=== PATIENT | female | born 1960 | race Caucasian/White ===

== ENCOUNTER 2019-06-22 11:53 | Emergency (ER) | payer BC ==
[2019-06-22 12:27] VITALS: BP 122/81
--- NOTE | 2019-06-22 12:29 | UC ---
Nausea/Vomiting/Diarrhea HPI - HPI Summary HPI Summary: Patient is a 58yo female presenting with c/o nausea and vomiting x3 days. 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 States she vomited ~2-3 more times that day. Also notes sharp L arm pain that began on thursday. States it does not radiate and is only the upper arm, not into should or forearm. Notes worse with arm abduction and better at rest. States that pain has gradually improved and feels "significantly better" when applying heat. Patient also notes she gave herself an EKG at work yesterday, which she states was normal. Denies abdominal pain and diarrhea. Denies URI symptoms. Denies fever, chills, body aches, and weight loss. Denies urinary symptoms, "other than dark urine because I am not drinking much." Notes decreased appetite and fluid intake "because just the though of food or drink makes me nauseous." States nausea subsides after vomiting but comes back shortly after. Patient states she has not eaten since Thursday or kept down fluids since thursday. States still urinating but less. Does note daily GERD and depression medication which she has not taken since Thursday. States depression medication "isn't for depression, it's to help with menopause symptoms and hot flashes." H/o lap band surgery and . - History of Current Complaint Stated Complaint: NAUSEA,LOZADA,BODY ACHES,LOW ENERGY X 3 DAYS Hx Obtained From: Patient Hx Last Menstrual Period: n/a Onset/Duration: Sudden Onset, Lasting Days Pain Intensity: 5 Pain Scale Used: 0-10 Numeric - Allergies/Home Medications Allergies/Adverse Reactions: Allergies Allergy/AdvReac Type Severity Reaction Status Date / Time Sulfa (Sulfonamide Allergy Hives Verified 06/22/19 12:21 Antibiotics) PMH/Surg Hx/FS Hx/Imm Hx GI/ History: Gastroesophageal Reflux - Surgical History Surgical History: Yes Surgery Procedure, Year, and Place: lap band 2007, 1986 - Family History Known Family History: Positive: Hypertension - Social History Occupation: Employed Full-time Alcohol Use: None Substance Use Type: None Smoking Status (MU): Former Smoker When Did the Patient Quit Smoking/Using Tobacco: 9 YRS - Immunization History Most Recent Tetanus Shot: 10/2013 Review of Systems All Other Systems Reviewed And Are Negative: Yes Constitutional: Positive: Fatigue. Negative: Fever, Chills Skin: Positive: Negative ENT: Positive: Negative Respiratory: Positive: Negative. Negative: Shortness Of Breath, Cough Cardiovascular: Positive: Negative. Negative: Palpitations, Chest Pain Gastrointestinal: Positive: Vomiting, Nausea. Negative: Abdominal Pain, Diarrhea Genitourinary: Positive: Negative. Negative: Dysuria, Hematuria, Frequency, Urgency Musculoskeletal: Positive: Negative. Negative: Myalgia Neurological: Positive: Headache Physical Exam Triage Information Reviewed: Yes Appearance: Well-Appearing, No Pain Distress, Well-Nourished Vital Signs: Initial Vital Signs Temp 98.5 F 06/22/19 12:22 Pulse 96 06/22/19 12:22 Resp 16 06/22/19 12:22 BP 122/81 06/22/19 12:22 Pulse Ox 99 06/22/19 12:22 Lab Results 06/22/19 Range/Units 13:57 POC Urine Color Yellow POC Urine Clarity Clear POC Urine pH 5.5 (5-9) POC Ur Specif [place] 1.025 (1.010-1.030) POC Urine Protein Trace (Negative) POC Ur Glucose (UA) Negative (Negative) POC Urine Ketones Trace (Negative) POC Urine Blood 1+ A (Negative) POC Urine Nitrite Negative (Negative) POC Urine Bilirubin 1+ A (Negative) POC Urine Urobilinogen 0.2 (Negative) POC U Leukocyte Esteras 2+ A (Negative) Vital Signs Reviewed: Yes Eyes: Positive: Conjunctiva Clear ENT: Positive: Hearing grossly normal, Pharynx normal Neck exam: Normal Neck: Positive: Supple, Nontender, No Lymphadenopathy Respiratory Exam: Normal Respiratory: Positive: Lungs clear, Normal breath sounds, No respiratory distress, No accessory muscle use. Negative: Crackles, Rhonchi, Stridor, Wheezing Cardiovascular Exam: Normal Cardiovascular: Positive: RRR Abdominal Exam: Normal Abdomen Description: Positive: Nontender, No Organomegaly, Soft, Other: - negative Briones's sign. port from lap band surgery noted in epigastric region that patient states "has been there for 10 years". Negative: CVA Tenderness (R) , CVA Tenderness (L), Distended, Guarding, McBurney's Point Tenderness Bowel Sounds: Positive: Present, Hypoactive Musculoskeletal: Positive: Strength Intact, No Edema, ROM Limited @ - L arm abduction d/t pain Neurological: Positive: Alert Psychological: Positive: Age Appropriate Behavior Skin Exam: Normal - no erythema or ecchymosis Naus/Vom/Diarrhea Course/Dx - Course Course Of Treatment: Patient presenting with n/v x3 days with no food or fluid intake. Patient received zofran here and was able to keep down water, zeb francia, and crackers. Patient noted improvement of nausea and stated "now I just want to go home and get some rest." UA positive for 2+ WBCs, 1+blood and bilirubin, trace ketones and protein. Patient without urinary symptoms, fever, abd pain, or flank pain. Patient VS normal and in NAD. I provided patient with zofran for home. She has not taken her celexa in 3 days, so I instructed her to withhold until no longer taking zofran, as to avoid prolonged QTc. Patient without cardiac issues. Instructed to follow up with pcp if symptoms persist. Educated on new or worsening symptoms that warrant going to ED and instructed to go to nearest one if any occur. Patient voiced understanding and agreed with the treatment plan. - Differential Dx/Diagnosis Differential Diagnoses - Female: Urinary Tract Infection, Gastroenteritis (Viral ), Vomiting, Gastritis Provider Diagnosis: Nausea and vomiting in adult patient Condition At Discharge: Stable Discharge ED - Sign-Out/Discharge Documenting (check all that apply): Patient Departure All imaging exams completed and their final reports reviewed: No Studies - Discharge Plan Condition: Stable Disposition: HOME Prescriptions: Ondansetron ODT TAB* [Zofran 4 MG Odt TAB*] 4 mg SL Q6H PRN #8 tab.odt PRN Reason: Nausea/Vomiting Patient Education Materials: Acute Nausea and Vomiting (ED) Referrals: Kevin Ye MD [Primary Care Provider] - If Needed Additional Instructions: As discussed, take the zofran as prescribed for your nausea and vomiting. Do not begin taking your Celexa again until you are no longer taking the Zofran. Get plenty of rest and fluids. Eat a bland diet, such as bread, bananas, and rice while symptoms are present. Go to the emergency room if your symptoms if you develop fever, abdominal pain, excessive vomiting or diarrhea, or are unable to keep fluids down. - Billing Disposition and Condition Condition: STABLE Disposition: Home
[2019-06-22] MEDS ORDERED: Ondansetron ODT TAB* 4 MG SL PRN (12:47)
[2019-06-22] MEDS ORDERED: Ondansetron ODT TAB* 4 MG SL ONE (12:50)
== END 2019-06-22 14:17 | disposition home or self-care (01) ==
LOC: UCCORT 11:53
DX: R11.2 Nausea with vomiting, unspecified (principal); Z88.2 Allergy status to sulfonamides; Z87.891 Personal history of nicotine dependence
CPT/HCPCS: 81003; 87086; 99212; A9270-GY; G0463

== ENCOUNTER 2019-08-30 14:54 | Emergency (ER) | payer BC ==
[2019-08-30 15:02] VITALS: BP 116/88
--- NOTE | 2019-08-31 06:33 | ED ---
Upper Extremity Pain - HPI Summary HPI Summary: Patient is a 58-year-old female who presents emergency department for left thumb injury that occurred this morning. Patient states she slipped outside and landed onto left hand causing them to hyperextend. No other injuries sustained. Symptoms are mild in severity. Moving area makes symptoms worse. Rest makes symptoms better. - History of Current Complaint Chief Complaint: EDExtremityUpper Stated Complaint: LEFT THUMB INJURY PER PT Time Seen by Provider: 08/30/19 15:06 Hx Obtained From: Patient Hx Last Menstrual Period: n/a - Allergies/Home Medications Allergies/Adverse Reactions: Allergies Allergy/AdvReac Type Severity Reaction Status Date / Time Sulfa (Sulfonamide Allergy Hives Verified 08/30/19 15:07 Antibiotics) Home Medications: Home Medications Citalopram TAB* [CeleXA TAB*] 20 mg PO DAILY 08/30/19 [History Confirmed ] Cyanocobalamin INJ * [Vitamin B12 INJ *] 1,000 mcg IM MONTHLY 08/30/19 [History Confirmed 08/30/19] Esomeprazole(NF) [NexIUM(NF)] 40 mg PO DAILY 08/30/19 [History Confirmed ] Rosuvastatin (NF) [Crestor (NF)] 10 mg PO DAILY 08/30/19 [History Confirmed ] Ustekinumab [Stelara] 45 mg SUBCUT Q3M 08/30/19 [History Confirmed 08/30/19] buPROPion SR TAB* [Wellbutrin SR TAB*] 150 mg PO BID 08/30/19 [History Confirmed 08/30/19] PMH/Surg Hx/FS Hx/Imm Hx Previously Healthy: Yes Endocrine/Hematology History: Denies: Hx Diabetes, Hx Thyroid Disease Cardiovascular History: Denies: Hx Hypertension, Hx Pacemaker/ICD Respiratory History: Denies: Hx Asthma, Hx Chronic Obstructive Pulmonary Disease (COPD) GI History: Denies: Hx Ulcer Sensory History: Denies: Hx Hearing Aid Psychiatric History: Denies: Hx Panic Disorder - Surgical History Surgery Procedure, Year, and Place: lap band 2007, 1986 Infectious Disease History: No Infectious Disease History: Denies: Hx Hepatitis, Hx Human Immunodeficiency Virus (HIV), Traveled Outside the [place] in Last 30 Days - Family History Known Family History: Positive: Hypertension, Non-Contributory - Social History Occupation: Employed Full-time Lives: With Family Alcohol Use: None Substance Use Type: Reports: None Smoking Status (MU): Former Smoker Review of Systems - ROS Summary Review of Systems Summary: Citalopram TAB* [CeleXA TAB*] 20 mg PO DAILY 08/30/19 [History Confirmed ] Cyanocobalamin INJ * [Vitamin B12 INJ *] 1,000 mcg IM MONTHLY 08/30/19 [History Confirmed 08/30/19] Esomeprazole(NF) [NexIUM(NF)] 40 mg PO DAILY 08/30/19 [History Confirmed ] Rosuvastatin (NF) [Crestor (NF)] 10 mg PO DAILY 08/30/19 [History Confirmed ] Ustekinumab [Stelara] 45 mg SUBCUT Q3M 08/30/19 [History Confirmed 08/30/19] buPROPion SR TAB* [Wellbutrin SR TAB*] 150 mg PO BID 08/30/19 [History Confirmed 08/30/19] Positive: Other - pain to left thumb. Positive: Bruising Neurological/Mental Status: Negative Negative: Weakness, Paresthesia, Numbness All Other Systems Reviewed And Are Negative: Yes Physical Exam Triage Information Reviewed: Yes Vital Signs On Initial Exam: Initial Vitals Temp Pulse Resp BP Pulse Ox 99.1 F 97 18 116/88 98 08/30/19 14:59 08/30/19 14:59 08/30/19 14:59 08/30/19 14:59 08/30/19 14:59 Vital Signs Reviewed: Yes Appearance: Positive: Well-Appearing - Pt. sitting on chair in NAD. Skin: Positive: Warm, Dry Head/Face: Positive: Normal Head/Face Inspection Eyes: Positive: Normal, EOMI Neck: Positive: Supple Musculoskeletal: Positive: Other - Pain and edema noted to left thumb extending to metacarpal. No breaks in skin. Difficulty with ROM secondary to pain. Difficult to assess tendons and ligaments. No proximal pain. Neurological: Positive: Normal, CN Intact II-III Psychiatric: Positive: Affect/Mood Appropriate Procedures - Sedation Patient Received Moderate/Deep Sedation with Procedure: No Diagnostics - Vital Signs Vital Signs Temp Pulse Resp BP Pulse Ox 08/30/19 14:59 99.1 F 97 18 116/88 98 - Laboratory Lab Statement: Any lab studies that have been ordered have been reviewed, and results considered in the medical decision making process. Course/Dx - Course Course Of Treatment: Patient with left hand injury. X-rays negative for acute findings per radiology. Concern for potential ligamental injury given fall and exam. Patient placed in thumb spica. We'll refer her to orthopedics for further evaluation. Ice and elevate intermittently. Tylenol or Motrin for pain as directed. Patient understands and agrees with plan. - Diagnoses Differential Diagnosis/HQI/PQRI: Positive: Fracture (Closed), Strain, Sprain Provider Diagnoses: Left thumb sprain Discharge ED - Sign-Out/Discharge Documenting (check all that apply): Patient Departure - Discharge Plan Condition: Good Disposition: HOME Patient Education Materials: Skier's Thumb (ED), Finger Sprain (ED) Referrals: Pato Delacruz MD [Medical Doctor] - Kevin Ye MD [Primary Care Provider] - Additional Instructions: Please schedule a follow up appointment with orthopedics for further evaluation of thumb injury Keep splint in place Ice and elevate Tylenol or Motrin for pain as directed Return to ER if symptoms change or worsen - Billing Disposition and Condition Condition: GOOD Disposition: Home - Attestation Statements Provider Attestation: I was available for consult. This patient was seen by the KATHRYN. The patient was not presented to, seen by, or examined by me. -Billie
== END 2019-08-30 16:16 | disposition home or self-care (01) ==
LOC: ED 14:54
DX: S63.602A Unspecified sprain of left thumb, initial encounter (principal); W01.0XXA Fall on same level from slipping, tripping and stumbling without subsequent striking against object, initial encounter; Y92.9 Unspecified place or not applicable; Z98.84 Bariatric surgery status; Z87.891 Personal history of nicotine dependence; Z79.899 Other long term (current) drug therapy; Z88.2 Allergy status to sulfonamides
CPT/HCPCS: 99282

== ENCOUNTER 2019-09-08 11:49 | Emergency (ER) | payer BC ==
--- NOTE | 2019-09-08 12:10 | ED ---
Lower Extremity - HPI Summary HPI Summary: 58 year old F arriving via private car to [facility] complains of worsening right hip and right knee pain since slipping and falling on ice several days ago. Patient states she overextended her left thumb when she fell and was seen in the ED several days ago for left thumb pain. Patient developed right hip and right knee pain shortly after which has been worsening and becoming more constant over the last several days. Patient has not been able to sleep due to the pain. She has had difficulty ambulating and cannot bear weight. She denies low back pain. No hx low back problems. The patient rates the pain 10/10 in severity. Symptoms aggravated by weight bearing and ambulating. Symptoms alleviated by Motrin. She has been taking Motrin for the pain and has not taken anything today. Medications reviewed. Allergies noted. Home Medications Medication Instructions Recorded Confirmed Type Citalopram TAB* [CeleXA TAB*] 20 mg PO DAILY 08/30/19 09/08/19 History Cyanocobalamin INJ * [Vitamin B12 1,000 mcg IM MONTHLY 08/30/19 09/08/19 History INJ *] Esomeprazole(NF) [NexIUM(NF)] 40 mg PO DAILY 08/30/19 09/08/19 History Rosuvastatin (NF) [Crestor (NF)] 10 mg PO DAILY 08/30/19 09/08/19 History buPROPion SR TAB* [Wellbutrin SR 150 mg PO BID 08/30/19 09/08/19 History TAB*] ALPRAZolam TAB* [Xanax TAB*] 0.5 mg PO Q6H PRN MDD 4 tabs 09/08/19 09/08/19 History Azithromycin TAB* [Zithromax TAB 500 mg PO DAILY 09/08/19 09/08/19 History (Z-TARAH) 250 mg #6 tabs] Naproxen TAB* [Naprosyn 250 mg 500 mg PO BID PRN 09/08/19 09/08/19 History TAB*] - History of Current Complaint Chief Complaint: EDHipPelvisInjury Stated Complaint: R LEG/L ARM PAIN PER PT Time Seen by Provider: 09/08/19 11:56 Hx Obtained From: Patient Mechanism Of Injury: Other - slipping and falling on ice Onset of Pain: Days Onset/Duration: Still Present Severity Currently: Severe Pain Intensity: 10 Pain Scale Used: 0-10 Numeric Timing: Constant Associated Signs And Symptoms: Positive: Negative - low back pain Aggravating Factor(s): Ambulation, Weight Bearing Alleviating Factor(s): OTC Meds - Allergies/Home Medications Allergies/Adverse Reactions: Allergies Allergy/AdvReac Type Severity Reaction Status Date / Time Sulfa (Sulfonamide Allergy Hives Verified 09/08/19 11:50 Antibiotics) Home Medications: Home Medications Citalopram TAB* [CeleXA TAB*] 20 mg PO DAILY 08/30/19 [History Confirmed ] Cyanocobalamin INJ * [Vitamin B12 INJ *] 1,000 mcg IM MONTHLY 08/30/19 [History Confirmed 09/08/19] Esomeprazole(NF) [NexIUM(NF)] 40 mg PO DAILY 08/30/19 [History Confirmed ] Rosuvastatin (NF) [Crestor (NF)] 10 mg PO DAILY 08/30/19 [History Confirmed ] buPROPion SR TAB* [Wellbutrin SR TAB*] 150 mg PO BID 08/30/19 [History Confirmed 09/08/19] ALPRAZolam TAB* [Xanax TAB*] 0.5 mg PO Q6H PRN MDD 4 tabs 09/08/19 [History Confirmed 09/08/19] Azithromycin TAB* [Zithromax TAB (Z-TARAH) 250 mg #6 tabs] 500 mg PO DAILY [History Confirmed 09/08/19] Naproxen TAB* [Naprosyn 250 mg TAB*] 500 mg PO BID PRN 09/08/19 [History Confirmed 09/08/19] traMADol TAB* [Ultram*] 50 mg PO Q6HR PRN #20 tab MDD 4 09/08/19 [Rx] traMADol TAB* [Ultram*] 50 mg PO Q6HR PRN #20 tab MDD 4 09/08/19 [Rx] PMH/Surg Hx/FS Hx/Imm Hx Endocrine/Hematology History: Denies: Hx Diabetes, Hx Thyroid Disease Cardiovascular History: Denies: Hx Hypertension, Hx Pacemaker/ICD Respiratory History: Denies: Hx Asthma, Hx Chronic Obstructive Pulmonary Disease (COPD) GI History: Denies: Hx Ulcer Sensory History: Denies: Hx Hearing Aid Psychiatric History: Denies: Hx Panic Disorder - Surgical History Surgery Procedure, Year, and Place: lap band 2007, 1986 Infectious Disease History: No Infectious Disease History: Denies: Hx Hepatitis, Hx Human Immunodeficiency Virus (HIV), Traveled Outside the [place] in Last 30 Days - Family History Known Family History: Positive: Hypertension - Social History Alcohol Use: None Substance Use Type: Reports: None Hx Tobacco Use: Yes Smoking Status (MU): Former Smoker Review of Systems Negative: Fever Musculoskeletal: Negative - low back pain Positive: Other - right knee and right hip pain, left thumb pain All Other Systems Reviewed And Are Negative: Yes Physical Exam - Summary Physical Exam Summary: Appearance: The patient is well-nourished in no acute distress and in no acute pain. Skin: The skin is warm and dry, and skin color reflects adequate perfusion. HEENT: The head is normocephalic and atraumatic. The pupils are equal and reactive. The conjunctivae are clear and without drainage. Nares are patent and without drainage. Mouth reveals moist mucous membranes, and the throat is without erythema and exudate. The external ears are intact. The ear canals are patent and without drainage. The tympanic membranes are intact. Neck: The neck is supple with full range of motion and non-tender. There are no carotid bruits. There is no neck vein distension. Respiratory: Chest is non-tender. Lungs are clear to auscultation and breath sounds are symmetrical and equal. Cardiovascular: Heart is regular rate and rhythm. There is no murmur or rub auscultated. There is no peripheral edema and pulses are symmetrical and equal. Abdomen: The abdomen is soft and non-tender. There are normal bowel sounds heard in all four quadrants and there is no organomegaly palpated. Musculoskeletal: There is no back tenderness noted. She has tenderness with any range of motion of the right hip. She is non-tender in sacral area and right paralumbar area. Distal neurovascular and motor are in tact. There is good capillary refill. There is no peripheral edema or calf tenderness elicited. Neurological: Patient is alert and oriented to person, place and time. The patient has symmetrical motor strength in all four extremities. Cranial nerves are grossly intact. Deep tendon reflexes are symmetrical and equal in all four extremities. Psychiatric: The patient has an appropriate affect and does not exhibit any anxiety or depression. Triage Information Reviewed: Yes Vital Signs On Initial Exam: Initial Vitals Temp Pulse Resp BP Pulse Ox 97.2 F 116 18 140/77 98 09/08/19 11:50 09/08/19 11:50 09/08/19 11:50 09/08/19 11:50 09/08/19 11:50 Vital Signs Reviewed: Yes Procedures - Sedation Patient Received Moderate/Deep Sedation with Procedure: No Diagnostics - Vital Signs Vital Signs Temp Pulse Resp BP Pulse Ox 09/08/19 11:50 97.2 F 116 18 140/77 98 - Laboratory Lab Statement: Any lab studies that have been ordered have been reviewed, and results considered in the medical decision making process. - Radiology Right hip x-ray Radiology Interpretation Completed By: Radiologist - IMPRESSION: No fracture of the right hip or pelvis is noted. ED physician has reviewed this imaging report. - Ultrasound Abdomen Ultrasound Interpretation Completed By: Radiologist - #. No hernia or mass lesion evident to correspond with the region of palpable lump. #. A few normal morphology lymph nodes are noted measuring up to 0.5 cm short axis within normal size limits. #. The RIGHT common femoral artery and vein appear patent. ED physician has reviewed this imaging report. Re-Evaluation - Re-Evaluation First Eval Re-Evaluation Time: 15:27 Change: Improved - patient agrees to discharge Lower Extremity Course/Dx - Course Course Of Treatment: Ms. Davis was very tender in her right femoral canal area where I felt small mass. She did not have severe pain there at the time she fell but it has been gradually worsening to the point where she can hardly move her hip. Distal neurovascular motor were completely intact. Plain x-ray showed no acute pathology and an ultrasound was obtained with the concern for possible traumatic femoral hernia. There was no sign of hernia or DVT but she did have some lymphadenopathy. I think symptomatic treatment is indicated at this point and she did get fairly significant relief with tramadol here. - Diagnoses Provider Diagnoses: Muscle strain Discharge ED - Sign-Out/Discharge Documenting (check all that apply): Patient Departure - Discharge Plan Condition: Stable Disposition: HOME Prescriptions: traMADol TAB* [Ultram*] 50 mg PO Q6HR PRN #20 tab MDD 4 PRN Reason: Pain traMADol TAB* [Ultram*] 50 mg PO Q6HR PRN #20 tab MDD 4 PRN Reason: Pain Patient Education Materials: Muscle Strain (ED) Referrals: Kevin Ye MD [Primary Care Provider] - 2 Days Additional Instructions: Follow up with your primary care provider in 2-3 days. Return to the Emergency Department for new or worsening symptoms. - Billing Disposition and Condition Condition: STABLE Disposition: Home - Attestation Statements Document Initiated by Barbarae: Yes Documenting Scribe: Duyen Reid Provider For Whom Felicity is Documenting (Include Credential): Kole Martinez MD Scribe Attestation: IDuyen, scribed for Kole Martinez MD on 09/08/19 at 2117. Scribe Documentation Reviewed: Yes Provider Attestation: The documentation as recorded by the Duyen mejia accurately reflects the service I personally performed and the decisions made by me, Kole Martinez MD Status of Scribe Document: Viewed
[2019-09-08] MEDS ORDERED: traMADol TAB* 50 MG PO ONE (12:16)
[2019-09-08 18:34] VITALS: BP 146/78
== END 2019-09-08 17:25 | disposition home or self-care (01) ==
LOC: ED 11:49
DX: S76.011A Strain of muscle, fascia and tendon of right hip, initial encounter (principal); S86.811A Strain of other muscle(s) and tendon(s) at lower leg level, right leg, initial encounter; M79.645 Pain in left finger(s); W00.0XXA Fall on same level due to ice and snow, initial encounter; Y92.9 Unspecified place or not applicable; Z88.2 Allergy status to sulfonamides; Z87.891 Personal history of nicotine dependence
CPT/HCPCS: 76705; 99282; A9270-GY

== ENCOUNTER 2023-02-19 06:24 | Observation (INO) ==
[~2023-02-19 06:24] MED LIST: Buffered Lidocaine 1% SYRIN 1 ml INTRADERM ONE; Lactated Ringers 1000 ml BAG 1,000 ML IV SCH; Naloxone 0.4 mg VIAL 0.4 mg/ml 1 ml VIAL IV PRN; Ondansetron 4 mg VIAL 2 MG/ML 2 ml VIAL IV PRN; fentaNYL 100 mcg/2 ml 50 MCG/ML VIAL IV PRN; oxyCODONE/Acetamin 5/325 mg TAB PO PRN
[2023-02-19] MEDS ORDERED: ceFAZolin 2 GM in NS PREMIX 2 GM/100 ML BAG IVPB ONE (06:53)
[2023-02-19 07:39] LABS: Rapid COVID-19 Molecular Undetected (Undetected)
[2023-02-19] MEDS ORDERED: Lidocaine 2% PF 5 ML VIAL ONE (08:11)
[2023-02-19] MEDS ORDERED: Propofol 10 MG/ML 20 ML BTL ONE ×2 (08:11→11:18)
[2023-02-19] MEDS ORDERED: fentaNYL 100 mcg/2 ml 50 MCG/ML VIAL ONE (08:11)
[2023-02-19] MEDS ORDERED: Ondansetron 4 mg VIAL 2 MG/ML 2 ml VIAL ONE ×2 (08:11→10:04)
[2023-02-19] MEDS ORDERED: Midazolam 2 mg/2 ml VIAL 1 mg/ml 2 ml VIAL (2 mg) ONE ×2 (08:11→08:30)
[2023-02-19] MEDS ORDERED: ROPIVACAINE 5 MG/ML 30 ML BTL (0.5%) ONE ×2 (08:29→09:12)
[2023-02-19] MEDS ORDERED: Dexamethasone IV 4 MG/ML VIAL 1 ml VIAL ONE (10:04)
[2023-02-19] MEDS ORDERED: Acetaminophen IV 1 GM/100ML 1,000 MG/100 ML BAG IV ONE (10:04)
[2023-02-19] MEDS ORDERED: Ondansetron ODT 4 mg TAB 4 MG TAB PO PRN (12:12)
[2023-02-19] MEDS ORDERED: Ondansetron 4 mg VIAL 2 MG/ML 2 ml VIAL IV PRN (12:12)
[2023-02-19] MEDS ORDERED: Lactulose 30 ml UDC PO PRN (12:12)
[2023-02-19] MEDS ORDERED: Morphine 2 MG/ML SYRINGE IV PRN (12:12)
[2023-02-19] MEDS ORDERED: Magnesium Hydroxide LIQ 30 ML UDC PO PRN (12:12)
[2023-02-19] MEDS ORDERED: Lactated Ringers 1000 ml BAG 1,000 ML IV SCH (13:00)
[2023-02-19] MEDS ORDERED: ceFAZolin 1 GM ADVAN 1 GM in NS 0.9% 50 ML 50 ML IVPB SCH (18:00)
[2023-02-19 18:44] VITALS: BP 130/81
[2023-02-19] MEDS ORDERED: Magnesium Hydroxide LIQ 30 ML UDC PO SCH (21:00)
[2023-02-20] MEDS ORDERED: Vitamin THERAPEUTIC TAB PO SCH (09:00)
== END 2023-02-19 18:50 | disposition home or self-care (01) ==
LOC: SSU 06:24 → INTOOBSV 06:24 → AA 06:24 → OR 06:24 → SSU 12:12 → OR 02-20 13:45
PROVIDERS: ADMIT Orthopaedic Surgery Adult Reconstructive Orthopaedic Surgery; ATTEND Orthopaedic Surgery Adult Reconstructive Orthopaedic Surgery